=== PATIENT | male | born 1985 | race African-American/Black ===

== ENCOUNTER 2022-08-31 08:49 | Observation (INO) | payer SELFPAY ==
[2022-08-31] VITALS (25 sets, daily range): BP systolic 154–213; BP diastolic 91–126; PULSE 64–104; RESP 12–20; TEMP 36.5–36.7; O2SAT 98–100; BMI 31.1
--- NOTE | ~2022-08-31 | NM_ITS ---
EXAMINATION: NM allyson stress w perfusion DATE: 09/01/2022 10:47 INDICATION: Chest pain TECHNIQUE: Rest images were obtained following intravenous administration of 12.35 mCi Tc99m tetrofos min (Myoview). The patient was infused intravenously with Lexiscan (Regadenoson). Then, 44.5 mCi Tc99 m tetrofosmin (Myoview) was administered intravenously, and stress images were obtained. Data was rec onstructed into short axis and horizontal and vertical long axis SPECT images. Gated SPECT images wer e also obtained. COMPARISON: None. FINDINGS: There is no definite reversible or fixed perfusion abnormality to suggest ischemia or infar ction. There is normal left ventricular chamber size, wall motion and ejection fraction. Left ventr icular ejection fraction measures 68%. IMPRESSION: 1. Normal myocardial perfusion at rest and during stress. 2. Left ventricular ejection fraction measuring 68%. Reviewed, dictated and finalized at location A.
--- NOTE | ~2022-08-31 | CT_ITS ---
Noncontrast CT scan of the cervical spine Technique: Multiple contiguous axial [address] images of the cervical spine were obtained and rec onstructed in 2D sagittal and coronal planes on the acquisition scanner. Dose reduction technique was used on this scan by utilizing automated exposure control, adjustment of the mA and/or kV according to patient size. Clinical History: Pain Findings: No fractures or dislocations. Unremarkable visualized bony structures. The intervertebral disc spaces are preserved. No prevertebral soft tissue swelling. Impression: No fracture or subluxation of the cervical spine. Reviewed, dictated and finalized at location M. Impression: No fracture or subluxation of the cervical spine.
--- NOTE | ~2022-08-31 | XR_ITS ---
Clinical Indication: Chest pain PA and lateral views of the chest: Comparison: None Findings: The lungs are clear, without evidence of focal consolidation or pleural effusion. Cardiome diastinal silhouette is within normal limits. Bones and soft tissues are unremarkable. Impression: Normal chest. Reviewed, dictated and finalized at location . Impression: Normal chest.
--- NOTE | ~2022-08-31 | CT_ITS ---
Non-contrast Head CT History: Left arm paresthesia Technique: Axial non-contrast imaging of the brain was performed. Dose reduction technique was used on this scan by utilizing automated exposure control and iterative reconstruction technique. The dose -length product (DLP) was 681.00 mGy-cm. Findings: There is no evidence of intracranial hemorrhage, mass lesion, or acute infarct. Brain par enchyma appears normal. The ventricles and subarachnoid spaces are normal in size. The calvarium ap pears normal. The visualized paranasal sinuses and mastoid air cells are clear. Impression: No significant abnormality seen. Reviewed, dictated and finalized at location . Impression: No significant abnormality seen.
--- NOTE | ~2022-08-31 | US_ITS ---
EXAMINATION: US renal BI DATE: 08/31/2022 18:23 INDICATION: Uncontrolled hypertension TECHNIQUE: Multiple grayscale and Doppler ultrasound images of the kidneys were obtained. COMPARISON: None. FINDINGS: The right kidney measures 11.0 x 4.5 x 5.4 cm. The left kidney measures 11.0 x 5.9 x 6.0 cm. The kidn eys demonstrate normal parenchymal echogenicity. There is no hydronephrosis. The bladder is normal. IMPRESSION: Unremarkable renal sonogram findings. Reviewed, dictated and finalized at location K.
--- NOTE | 2022-08-31 08:56 | ECG_ITS ---
Measurements Intervals [place] Rate: 69 P: 60 LA: 152 QRS: -15 QRSD: 88 T: -27 QT: 383 QTc: 412 Interpretive Statements SINUS RHYTHM POSSIBLE LEFT ATRIAL ENLARGEMENT POSSIBLE LEFT VENTRICULAR HYPERTROPHY MINIMAL Q WAVES- HIGH LATERAL LEADS NONSPECIFIC T-WAVE ABNORMALITY- INF/LAT LEADS BASELINE ARTIFACT- V4-V5 BORDERLINE ECG NO PREVIOUS ECG AVAILABLE FOR COMPARISON Electronically Signed On 08-31-2022 9:09:27 CDT by Karsten Huff D.O.
[2022-08-31] MEDS: Please add drug allergy info to patient profile. 1 EACH XX (09:19)
--- NOTE | 2022-08-31 09:26 | ED.CHESTPAIN ---
HPI - Chest Pain General Chief Complaint: Chest Pain <JOELLE Cortez Last Filed: 08/31/22 11:30> Stated Complaint: chest pain <JOELLE Cortez Last Filed: 08/31/22 11:30> Time Seen by Provider: 08/31/22 09:10 <Alecia Zurita PA-C - Last Filed: 08/31/22 11:30> Source: patient <JOELLE Cortez Last Filed: 08/31/22 11:30> Mode of arrival: ambulatory <JOELLE Cortez Last Filed: 08/31/22 11:30> Limitations: no limitations <JOELLE Cortez Last Filed: 08/31/22 11:30> History of Present Illness HPI narrative: This is a 37-year-old male that presents to the emergency department for chest pain ongoing over the last week. Reports the pain is an intermittent, brief pressure. Sometimes it is worse with movement. He also has been experiencing paresthesias under his left upper arm for the last several days. No recent injuries or trauma. Patient noted to be hypertensive. He does report he was told by his doctor his blood pressure was elevated and started on medications for this about 2 years ago. He has not been taking them. Denies fever, cough, shortness of breath, or lower extremity edema. <Alecia Zurita PA-C - Last Filed: 08/31/22 11:30> Related Data Home Medications: Home Medications Medication Instructions Recorded Confirmed No Home Medications 08/31/22 08/31/22 <Alecia Zurita PA-C - Last Filed: 08/31/22 11:30> Allergies/Adverse Reactions: Allergies Allergy/AdvReac Type Severity Reaction Status Date / Time No Known Allergies Allergy Verified 08/31/22 09:08 <JOELLE Cortez Last Filed: 08/31/22 11:30> Review of Systems Review of Systems: CONSTITUTIONAL: Denies fever CARDIOVASCULAR: Reports chest pain. Denies edema. RESPIRATORY: Denies cough or dyspnea. MUSCULOSKELETAL: Denies back pain, joint pain, or myalgia. NEUROLOGIC: Denies headache, numbness, or weakness. <Alecia Zurita PA-C - Last Filed: 08/31/22 11:30> All systems reviewed & are unremarkable except as noted in HPI and below <Alecia Zurita PA-C - Last Filed: 08/31/22 11:30> PMFSH Past Medical History Medical History: Medical History History of hypertension History of sleep apnea <Alecia Zurita PA-C - Last Filed: 08/31/22 11:30> Surgical History Surgical History: Surgical History No pertinent past surgical history <Alecia Zurita PA-C - Last Filed: 08/31/22 11:30> Family History Family History: Family History Other Unknown family medical history <Alecia Zurita PA-C - Last Filed: 08/31/22 11:30> Social History Social History: Social History (Updated 08/31/22 @ 16:46 by Tomasa Riojas NP) Social History: The patient is single and lives alone he has no children. He works for [employer]. Code status full code Smoking status: Never smoker Alcohol intake: current Drinks per week: 2 Substance use: never Lack of Transportation: No Lack of Food: Never True Current Housing: I Have Housing Concerned About Future Housing: No Difficulty Paying Gas/Electric Bills: No Difficulty Paying for Meds: No Currently Unemployed: No Education: Decline to Answer Difficulty w/ Childcare or Family Care: Decline to Answer Spiritual care concerns: No <Alecia Zurita PA-C - Last Filed: 08/31/22 11:30> Exam Narrative: GENERAL: Well-appearing, well-nourished, and in no acute distress. HEAD: Normocephalic, atraumatic. EYES: PERRLA and EOMI. ENT: Nares clear, no rhinorrhea or epistaxis. Mucous membranes moist. Oropharynx without tonsillar hypertrophy exudate or other lesions. Bilateral TMs pearly brooks non-bulging NECK: Supple. No adenopathy or masses. CHEST: Clear to auscultation. No respiratory distress. No wheezes rales
[2022-08-31] MEDS: hydrALAZINE HCL 20 MG/ML VIAL 10 MG IV PUSH ×2 (09:49→13:43)
[2022-08-31 09:54] LABS: Basophils Percent Auto 0.7 % (0.2-1.2); Eosinophils Percent Auto 0.7 % (0-4.4); Hematocrit 38.6 % (42.0-52.0); Hemoglobin 13.1 g/dL (14.0-18.0); Immature Granulocyte Absolute 0.01 K/mm3 (0.00-0.031); Immature Granulocyte Percent A 0.2 % (0-0.5); Lymphocytes Absolute Auto 1.62 K/mm3 (0.9-3.2); Lymphocytes Percent Auto 35.7 % (18.3-44.2); Mean Corpuscular HGB Conc 33.9 g/dl (32-36); Mean Corpuscular Hemoglobin 28.9 pg (26-34); Mean Corpuscular Volume 85.2 fl (80-100); Monocytes Absolute Auto 0.4 K/mm3 (0.1-0.6); Monocytes Percent Auto 8.4 % (2.6-8.5); Neutrophils Absolute Auto 2.5 K/mm3 (1.3-6.7); Neutrophils Percent Auto 54.3 % (45.5-73.1); Platelet Count Result 250 k/mm3 (150-375); Red Blood Count 4.53 M/mm3 (4.6-6.20); White Blood Count 4.5 K/mm3 (4.5-10.0)
[2022-08-31 10:04] LABS: Alanine Aminotransferase 21 U/L (6-50); Alkaline Phosphatase 67 U/L (38-126); Anion Gap 8 mmol/L (8-16); Aspartate Amino Transferase 30 U/L (17-59); Bilirubin,Total 1.1 mg/dL (0.2-1.3); Blood Urea Nitrogen 12 mg/dL (9-20); Calcium 9.6 mg/dL (8.4-10.2); Carbon Dioxide 28 mmol/L (22-30); Chloride 105 mmol/L (98-107); Estimated CRCL calculation 93 ml/min; Estimated Glomerular Filt Rate > 60; Glucose 104 mg/dL (65-110); Lipase 67 U/L (23-300); Potassium 3.9 mmol/L (3.4-5.0); Sodium 141 mmol/L (137-145)
[2022-08-31 10:05] LABS: INR 1.1; Prothrombin Time 13.5 Seconds (11.1-14.7)
[2022-08-31 10:06] LABS: Partial Thromboplastin Time 33.7 SECONDS (22.3-36.8)
[2022-08-31 10:16] LABS: Troponin I < 0.012 ng/mL (0.000-0.034)
[2022-08-31 12:28] LABS: Troponin I < 0.012 ng/mL (0.000-0.034)
[2022-08-31] MEDS: hydrALAZINE HCL 20 MG/ML VIAL (13:45)
--- NOTE | 2022-08-31 14:16 | PM.IMHP ---
H&P: HPI History of Present Illness Date/Time: 08/31/22 14:16 Chief Complaint: Chest pain Narrative: This is a 37-year-old male patient who has had a history of hypertension in the past and has taken high blood pressure medication approximately 2 years ago was diagnosed with hypertension by Fransisca Potts his primary care doctor. However the patient cannot recall the name of the medication that he was taking any no longer takes them. Patient stated that he does have sleep apnea but has not used his CPAP machine on a regular basis. The patient came into the emergency room for complaints of chest pain that was ongoing over last week. Patient stated was intermitted and it did radiate to his left chest and under his armpit. He has no tenderness to the left chest but he does have tenderness to left underarm. The patient denies any heavy lifting or any injuries. The patient also stated that he had paresthesias to his left arm for several days. He denies any fever chills or cough. His H&H is 13.1 and 38.6. Troponin nonreactive x3. EKG was read as sinus rhythm possible left atrial enlargement. Minimal Q-waves high lateral leads. Chest x-ray was read as normal chest. Cervical spine no fracture or subluxation of the cervical spine. The patient was given aspirin, hydralazine and labetalol. The patient's initial blood pressure is 213/126 and it is down to 172/110. Patient is awake and talkative. The patient being admitted to observation status on the date of service of 08/31/2022 . Review of Systems Review of Systems: All systems reviewed & are unremarkable except as noted in HPI and below Constitutional: Constitutional: Reports as per HPI and Reports no additional constitutional complaints Eyes: Eyes: Reports as per HPI and Reports no additional eye complaints ENT: Reports system reviewed and no additional complaints, except as documented and Reports Normal hearing present Cardiovascular: Cardiovascular: Reports no additional cardiovascular complaints Respiratory: Respiratory: Reports no additional respiratory complaints and Reports no additional respiratory complaints Gastrointestinal: Gastrointestinal: Reports as per HPI and Reports no additional gastrointestinal complaints Musculoskeletal: Musculoskeletal: Reports no additional musculoskeletal complaints Integumentary/Breasts: Skin/Breast: Reports system reviewed and no additional complaints, except as docu and Reports as per HPI Neurologic: Reports system reviewed and no additional complaints, except as documented, Reports as per HPI and Reports Normal hearing present Psychiatric: Psychiatric: Reports no additional psychiatric complaints and Reports as per HPI Endocrine: Endocrine: Reports no additional endocrine complaints Hematologic/Lymphatic: Hematologic/Lymphatic: Reports no additional hematologic/lymphatic complaints Allergic/Immunologic: Allergic/Immunologic: Reports no additional allergic/immunologic complaints [facility] Past Medical History Medical History History of hypertension History of sleep apnea Surgical History Surgical History No pertinent past surgical history Family History Family History Other Unknown family medical history Social History Social History (Updated 08/31/22 @ 16:46 by Tomasa Riojas NP) Social History: The patient is single and lives alone he has no children. He works for [employer]. Code status full code Smoking status: Never smoker Alcohol intake: current Drinks per week: 2 Substance use: never Lack of Transportation: No Lack of Food: Never True Current Housing: I Have Housing Concerned About Future Housing: No Difficulty Paying Gas/Electric Bills: No Difficulty Paying for Meds: No Currently Unemployed: No Education: Decline to Answer
[2022-08-31 15:26] LABS: Troponin I < 0.012 ng/mL (0.000-0.034)
[2022-08-31] MEDS: amLODIPine BESYLATE 2.5 MG, amLODIPine BESYLATE 5 MG 7.5 MG PO (17:07)
[2022-08-31] MEDS: LABETALOL HCL INJ 100 MG/20 ML VIAL 20 MG IV PUSH (17:07)
[2022-08-31 18:54] LABS: Total Protein Urine Random 9 mg/dL
[2022-08-31] MEDS: LABETALOL HCL INJ 100 MG/20 ML VIAL IV PUSH (21:06)
[2022-08-31] MEDS: WATER FOR IRRIGATION, STERILE 1,000 ML BOTTLE 1000 ML (23:00)
[2022-09-01] VITALS (12 sets, daily range): BP systolic 157–185; BP diastolic 101–109; PULSE 53–115; RESP 14–20; TEMP 36.2–36.6; O2SAT 100
--- NOTE | 2022-09-01 | EST_ITS ---
Patient Info Name: Khanh Baxter Age: 37 years : 1985 Gender: Male Ht: 71 in Wt: 223 lbs BSA: 2.28 m2 HR: 82 bpm BP: 176 / 102 mmHg Heart Rhythm: Sinus Rhythm Exam Date: 09/01/2022 8:56 AM Exam Location: [facility] Stress Patient Status: Inpatient Admit Date: 08/31/2022 Staff Ordering Physician: Tomasa Riojas NP Attending Provider: Terry Levy MD Nurse: tito castañeda Exam Type: CA stress allyson w NM Study Info Indications R07.89 - Other chest pain A regadenoson stress test was performed. Summary 1. No abnormal ST/T wave changes diagnostic of ischemia with Lexiscan. 2. Please correlate with nuclear medicine images, reported separately. Protocol: Lexiscan Stress ECG Details Stage: REST Duration (min): 1 min : 45 sec HR (bpm): 88 SBP (mmHg): --- DBP (mmHg): --- Stage: STAGE 1 Duration (min): 1 min : 0 sec HR (bpm): 118 SBP (mmHg): 185 DBP (mmHg): 119 Stage: RECOVERY Duration (min): 1 min : 0 sec HR (bpm): 129 SBP (mmHg): 185 DBP (mmHg): 119 Stage: RECOVERY Duration (min): 2 min : 0 sec HR (bpm): 117 SBP (mmHg): 185 DBP (mmHg): 119 Stage: RECOVERY Duration (min): 3 min : 0 sec HR (bpm): 123 SBP (mmHg): 175 DBP (mmHg): 80 Stage: RECOVERY Duration (min): 4 min : 0 sec HR (bpm): 109 SBP (mmHg): 175 DBP (mmHg): 80 Stage: RECOVERY Duration (min): 5 min : 0 sec HR (bpm): 108 SBP (mmHg): 178 DBP (mmHg): 80 Stage: RECOVERY Duration (min): 5 min : 41 sec HR (bpm): 99 SBP (mmHg): 178 DBP (mmHg): 80 Rest HR: 88 bpm Peak HR: 131 bpm Peak Sys BP: 185 mmHg Max Pred HR: 184 bpm % Max Pred HR: 71 % Target HR: 156 bpm Max RPP: 24,235 bpm*mmHg Total Time: 1 min : 0 sec Peak Dsouza BP: 119 mmHg Total Dose: 0.4 mg Resting ECG Sinus rhythm. Baseline T-wave abnormality in the inferolateral leads. Stress ECG Sinus tachycardia. No abnormal ST/T wave changes diagnostic of ischemia with Lexiscan. Arrhythmias None. Report Signatures
--- NOTE | 2022-09-01 | ECHO_ITS ---
Patient Info Name: Khanh Baxter Age: 37 years : 1985 Gender: Male Ht: 71 in Wt: 223 lbs BSA: 2.28 m2 HR: 83 bpm BP: 157 / 107 mmHg Heart Rhythm: Sinus Rhythm Exam Date: 09/01/2022 10:26 AM Exam Location: [facility] Pulmonary Patient Status: Inpatient Admit Date: 08/31/2022 Staff Ordering Physician: Tomasa Riojas NP Service Or Work Dispatcher Chief: Jerry Sierra RDCS, RT Attending Provider: Terry Levy MD Referring Physician: Beulah DOVE; Exam Type: CA echo doppler color flow Study Info Indications R07.9 - Chest pain, unspecified Complete two-dimensional, color flow and Doppler transthoracic echocardiogram is performed. Strain analysis performed. Summary 1. Complete two-dimensional, color flow and Doppler transthoracic echocardiogram is performed. 2. Left ventricular chamber dimension is normal. 3. Left ventricular systolic function is normal, estimated at 60-65%. 4. There is moderate concentric increased left ventricular wall thickness. 5. The left ventricular diastolic function is grade I diastolic dysfunction. 6. Right ventricular systolic function is normal. 7. There is mild tricuspid valve regurgitation. 8. There is mild pulmonic regurgitation. Left Ventricle Left ventricular chamber dimension is normal. Left ventricular systolic function is normal, estimated at 60-65%. There is moderate concentric increased left ventricular wall thickness. The left ventricular diastolic function is grade I diastolic dysfunction. Global longitudinal strain is abnormal at -16 %. Right Ventricle Right ventricular chamber dimension is normal. Right ventricular systolic function is normal. Left Atria Left atrial chamber dimension is normal. Right Atria Right atrial chamber dimension is normal. Atrial Septum Intact interatrial septum visualized by color flow imaging. Aortic Valve The aortic valve is trileaflet. There is no aortic valve stenosis. There is no aortic valve regurgitation. Pulmonic Valve The pulmonic valve is normal. There is mild pulmonic regurgitation. Mitral Valve The mitral valve has normal leaflets. There is no mitral valve stenosis. There is trace mitral valve regurgitation. Tricuspid Valve There is no significant tricuspid valve stenosis. There is mild tricuspid valve regurgitation. Pericardium/Pleural There is no pericardial effusion. Inferior Vena Cava Normal inferior vena cava with >50% collapse upon inspiration consistent with normal right atrial pressure, 3 mmHg. Aorta The aortic root size at the sinus of Valsalva is normal. Left Ventricular Outflow Tract Name Value Normal LVOT 2D LVOT Diameter 2.2 cm LVOT Doppler LVOT Peak Gradient 7 mmHg LVOT Mean Gradient 2 mmHg LVOT VTI 20 cm LVOT VTI/AV VTI Ratio 0.7 LVOT Stroke Volume 75 ml LVOT CO 6.3 l/min LVOT CI 2.8 l/min/m2 Mitral Valve
[2022-09-01 05:37] LABS: Basophils Percent Auto 0.6 % (0.2-1.2); Eosinophils Absolute Auto 0.1 K/mm3 (0-0.3); Eosinophils Percent Auto 1.3 % (0-4.4); Hematocrit 39.2 % (42.0-52.0); Hemoglobin 13.3 g/dL (14.0-18.0); Immature Granulocyte Absolute 0.02 K/mm3 (0.00-0.031); Immature Granulocyte Percent A 0.3 % (0-0.5); Lymphocytes Absolute Auto 2.18 K/mm3 (0.9-3.2); Mean Corpuscular HGB Conc 33.9 g/dl (32-36); Mean Corpuscular Volume 85.4 fl (80-100); Mean Platelet Volume 10.5 fl (7.4-10.4); Monocytes Absolute Auto 0.7 K/mm3 (0.1-0.6); Monocytes Percent Auto 10.6 % (2.6-8.5); Neutrophils Absolute Auto 3.8 K/mm3 (1.3-6.7); Neutrophils Percent Auto 55.2 % (45.5-73.1); Platelet Count Result 253 k/mm3 (150-375); Red Blood Count 4.59 M/mm3 (4.6-6.20); Red Cell Distribution Width 13.2 % (11.5-14.5); White Blood Count 6.8 K/mm3 (4.5-10.0)
[2022-09-01 05:48] LABS: Alanine Aminotransferase 18 U/L (6-50); Albumin Level 4.5 g/dL (3.5-5.1); Alkaline Phosphatase 61 U/L (38-126); Anion Gap 5 mmol/L (8-16); Aspartate Amino Transferase 25 U/L (17-59); Bilirubin,Total 1.3 mg/dL (0.2-1.3); Blood Urea Nitrogen 12 mg/dL (9-20); Calcium 9.2 mg/dL (8.4-10.2); Carbon Dioxide 28 mmol/L (22-30); Chloride 106 mmol/L (98-107); Cholesterol 201 mg/dL (0-200); Estimated CRCL calculation 85 ml/min; Estimated Glomerular Filt Rate > 60; Glucose 101 mg/dL (65-110); HDL Direct 52 mg/dL; Potassium 3.6 mmol/L (3.4-5.0); Sodium 139 mmol/L (137-145); Triglycerides 112 mg/dL (<150)
[2022-09-01 06:00] LABS: LDL Cholesterol Direct 108 mg/dL
[2022-09-01 06:56] LABS: Thyroid Stimulating Hormone Reflex 0.851 uIU/mL (0.465-4.68)
[2022-09-01] MEDS: amLODIPine BESYLATE 2.5 MG, amLODIPine BESYLATE 5 MG 7.5 MG PO (10:59)
[2022-09-01] MEDS: ASPIRIN 81 MG ENTERIC TABLET PO (10:59)
[2022-09-01] MEDS: ENOXAPARIN 40 MG/0.4 ML SYRINGE SUB-Q (11:00)
--- NOTE | 2022-09-01 17:31 | PM.DS ---
DS: Admitting Diagnosis Discharge Date 09/01/2022 Admitting Diagnosis Chest pain DS: Discharge Diagnosis Discharge Diagnosis (1) Chest pain: Qualifiers: Chest pain type: unspecified Qualified Code(s): R07.9 - Chest pain, unspecified Code(s): R07.9 - Chest pain, unspecified Status: Acute Assessment and Plan: Chest x-rays negative. No CTA was performed at this time. He does not appear to be tachypneic tachycardic. Cardiac enzymes have been nonreactive x3 Proceed with treadmill stress test if patient's blood pressure is within normal limits This could be a cardiac strain from his hypertensive urgency Continue with daily enteric-coated aspirin An echo has been ordered (2) Hypertensive urgency: Code(s): I16.0 - Hypertensive urgency Status: Acute Assessment and Plan: An echo has been ordered due to his hypertensive urgency. Urines have been ordered Lipid profiles been ordered The patient has obstructive sleep apnea and does not always use his CPAP machine which could lead to hypertension. Apneic study has been ordered The patient had been on hypertensive medication 2 years ago and has not been taking his medication. The patient was started on Norvasc P.r.n. hydralazine It was given a dose of labetalol DS: Summary Hospital Course Reason for hospitalization: Chest pain Narrative: This is a 37-year-old male patient who has had a history of hypertension in the past and has taken high blood pressure medication approximately 2 years ago was diagnosed with hypertension by Fransisca Potts? his primary care doctor.? However the patient cannot recall the name of the medication that he was taking any no longer takes them.? Patient stated that he does have sleep apnea but has not used his CPAP machine on a regular basis.? The patient came into the emergency room for complaints of chest pain that was ongoing over last week.? Patient stated was intermitted and it did radiate to his left chest and under his armpit.? He has no tenderness to the left chest but he does have tenderness to left underarm.? The patient denies any heavy lifting or any injuries.? The patient also stated that he had paresthesias to his left arm for several days.? He denies any fever chills or cough.? His H&H is 13.1 and 38.6.? Troponin nonreactive x3.? EKG was read as sinus rhythm possible left atrial enlargement.? Minimal Q-waves high lateral leads.? Chest x-ray was read as normal chest.? Cervical spine no fracture or subluxation of the cervical spine.? The patient was given aspirin, hydralazine and labetalol.? The patient's initial blood pressure is 213/126 and it is down to 172/110.? Patient is awake and talkative.? Hospital Course: 37-year-old male presented with complaint of chest pain, 3 sets of cardiac enzymes are negative there are no acute changes on EKG and his cardiac echo was essentially normal, clinically stable will discharge the patient today Time Spent with Patient Time attestation: Total time spent providing and/or coordinating discharge services: Exam Narrative: Patient is comfortable, NAD HEENT: eyes are clear and none icteric LUNGS:CTA HEART: RR S1S2 ABD: BS+, Soft and nontender Lower extremities: no edema SKIN: nonjaundiced Neuro: grossly intact. DS: Data Data Completed and Pending Labs on day of discharge: Labs from last 24 hours 09/01/22 09/01/22 09/01/22 04:58 04:58 04:58 WBC 6.8 RBC 4.59 L Hgb 13.3 L Hct 39.2 L MCV 85.4 MCH 29.0 MCHC 33.9 RDW 13.2 Plt Count 253 MPV 10.5 H Immature Gran % (Auto) 0.3 Neut % (Auto) 55.2 Lymph % (Auto) 32.0 [place] % (Auto) 10.6 H Eos % (Auto) 1.3 Baso % (Auto) 0.6 Lymph # (Auto) 2.18 [place] # (Auto) 0.7 H Eos # (Auto) 0.1 Baso # (Auto) 0.0 Abs Immat Gran (auto) 0.02 Absolute Neuts (auto) 3.8 Absolute Nucleated RBC 0.0 Nucleated RBC % 0.0 Sodium 139 Potassium 3.6 Chlor
[2022-09-03 16:01] LABS: Osmolality, Urine 566 mOsm/kg (50-1200)
== END 2022-09-01 18:38 | disposition home or self-care (01) ==
LOC: ANHED 11:30 → ANHIMU 09-01 11:28
PROVIDERS: Emergency Medicine; Nurse Practitioner; Admitting Provider Internal Medicine; Emergency Provider Physician Assistant; PCP Family Medicine; Visit Provider Family Medicine
DX: R07.9 Chest pain, unspecified (principal); I16.0 Hypertensive urgency; I11.9 Hypertensive heart disease without heart failure; Z91.14 Patient's other noncompliance with medication regimen; Z91.198 Patient's noncompliance with other medical treatment and regimen for other reason; G47.30 Sleep apnea, unspecified; F10.90 Alcohol use, unspecified, uncomplicated; D64.9 Anemia, unspecified; I36.1 Nonrheumatic tricuspid (valve) insufficiency; I37.1 Nonrheumatic pulmonary valve insufficiency
CPT/HCPCS: 36415; 70450; 71046; 72125; 76775; 78452; 80053; 80061; 81050; 82384; 82570; 83690; 83735; 83935; 84156; 84443; 84484; 85025; 85610; 85730; 93005; 93017; 93306; 94002; 96372; 96374; 96375; 96376; 99285; A9270; A9502; G0378; G0379; J0360; J1650; J2785